=== PATIENT | female | born 1930 | race Caucasian/White ===

== ENCOUNTER 2021-01-23 13:28 | Inpatient (IN) | payer MEDICARE, OTHER ==
[~2021-01-23] VITALS: Ht 167.6 cm; Wt 100.4 kg
[2021-01-23 14:46] LABS: HEMOGLOBIN 13.6 gm/dl (12.3-15.3); RED BLOOD COUNT 4.7 M/UL (4.00-5.10)
[2021-01-23] MEDS ORDERED: TEGRETOL200 MG PO (23:42)
[2021-01-23] MEDS ORDERED: PRAVASTATIN SOD20 MG PO (23:43)
[2021-01-23] MEDS ORDERED: ISOSORBIDE MONO60 MG PO (23:43)
[2021-01-23] MEDS ORDERED: LEVOTHYROXINE125 MCG PO (23:44)
[2021-01-23] MEDS ORDERED: DILTIAZEM ER180 M2 PO (23:45)
[2021-01-23] MEDS ORDERED: SINGULAIR10 MG PO (23:47)
[2021-01-23] MEDS ORDERED: FUROSEMIDE20 MG PO (23:48)
[2021-01-23] MEDS ORDERED: CITALOPRAM HBR20 MG PO (23:49)
[2021-01-23] MEDS ORDERED: CETIRIZINE HCL10 MG PO (23:50)
[2021-01-23] MEDS ORDERED: ELIQUIS2.5 MG PO (23:50)
[2021-01-23] MEDS ORDERED: DIAZEPAM5 MG PO (23:53)
[2021-01-23] MEDS ORDERED: METOPROLOL TART25 MG PO (23:53)
[2021-01-23] MEDS ORDERED: OMEPRAZOLE20 M1 PO (23:54)
[2021-01-23] MEDS ORDERED: MAGNESIUM OXID400 M2 PO (23:54)
[2021-01-24 04:17] LABS: HEMOGLOBIN 13.6 gm/dl (12.3-15.3); RED BLOOD COUNT 4.78 M/UL (4.00-5.10); WHITE BLOOD COUNT 6.8 K/UL (4.5-11.0)
[2021-01-24 04:49] LABS: BUN/CREATININE RATIO 30 (0-10)
[2021-01-25 08:52] LABS: HEMOGLOBIN 15.2 gm/dl (12.3-15.3); RED BLOOD COUNT 5.26 M/UL (4.00-5.10); WHITE BLOOD COUNT 14.7 K/UL (4.5-11.0)
[2021-01-26 13:01] LABS: RED BLOOD COUNT 4.58 M/UL (4.00-5.10); WHITE BLOOD COUNT 10.7 K/UL (4.5-11.0)
[2021-01-26 13:02] LABS: HEMOGLOBIN 13.2 gm/dl (12.3-15.3)
[2021-01-27 02:22] LABS: RED BLOOD COUNT 4.89 M/UL (4.00-5.10); WHITE BLOOD COUNT 10.3 K/UL (4.5-11.0)
[2021-01-29] MEDS ORDERED: DIAZEPAM5 MG PO (15:16)
[2021-01-29] MEDS ORDERED: OMEPRAZOLE20 M1 PO (15:16)
[2021-01-29] MEDS ORDERED: HUMALOG 10100 UNITS/ SC (15:16)
[2021-01-29] MEDS ORDERED: LANTUS INS100 UTS/M1 SC (15:16)
[2021-01-29] MEDS ORDERED: MAGNESIUM OXID400 M2 PO (15:16)
[2021-01-29] MEDS ORDERED: DILTIAZEM 24HR240 M1 PO (15:16)
[2021-02-02] MEDS ORDERED: ELIQUIS 5 MG TAB5 MG PO (11:05)
== END 2021-02-02 16:27 | DRG 291 ==
LOC: ER1 13:28 → CCU 18:13 → M/S 18:13 → PROG CARE 18:13 → CDU 18:13 → MED SURG 4 19:24 → CCU 01-25 11:52 → PROG CARE 01-26 13:43 → M/S 01-28 18:50
PROVIDERS: Emergency Medicine; ADMIT Internal Medicine
DX: I11.0 Hypertensive heart disease with heart failure (principal); J96.01 Acute respiratory failure with hypoxia; I50.31 Acute diastolic (congestive) heart failure; G93.41 Metabolic encephalopathy; N30.00 Acute cystitis without hematuria; I48.91 Unspecified atrial fibrillation; F03.90 Unspecified dementia, unspecified severity, without behavioral disturbance, psychotic disturbance, mood disturbance, and anxiety; R53.1 Weakness; R53.81 Other malaise; J44.9 Chronic obstructive pulmonary disease, unspecified; E11.9 Type 2 diabetes mellitus without complications; Z79.4 Long term (current) use of insulin; Z79.01 Long term (current) use of anticoagulants
CPT/HCPCS: ECHO; 0240U; 36415; 36600; 70450; 70551; 71045; 80048; 80053; 81001; 82550; 82553; 82803; 82962; 83036; 83605; 83735; 83874; 83880; 84100; 84484; 85025; 85027; 87040; 87077; 87086; 87186; 93005; 93306; 94640; 94664; 94760; 96374; 97110-GP-CQ; 97116; 97116-GP-CQ; 97161; 97164; 97530; 97530-GP-CQ; 99285; J0330; J0696; J1100; J1940; J2060